=== PATIENT | male | born 1975 | race Caucasian/White ===

== ENCOUNTER → 2023-06-29 13:47 | Outpatient (REF) | payer BC, SELFPAY | LOC: PAVMRI 13:47 | PROVIDERS: ATTENDING PHYSICIAN Psychiatry & Neurology Neurology; FAMILY PHYSICIAN Internal Medicine | DX: R41.3 Other amnesia (principal) | CPT/HCPCS: 70551 ==

== ENCOUNTER → 2023-07-21 11:14 | Outpatient (REF) | payer BC, SELFPAY ==
--- NOTE | 2023-07-26 14:56 | EEG.RPT ---
Electroencephalogram Report
Recording
Date of EE07/21/23
Length of EEG recordin minutes
Patient Status: Outpatient
Recording Conditions: Awake and Drowsy
Hyperventilation Performed: Yes
Photic Stimulation Performed: Yes
Hand Dominance: Unknown
Report
GREATER THAN 1 HOUR EEG INTERPRETATION:
Unremarkable EEG for age
CLINICAL CORRELATION:
A normal EEG does not rule out a diagnosis of epilepsy.� If clinical suspicion for seizure persists, a prolonged recording may be warranted.
Clinical correlation is advised.
METHODS:
A 21 channel digitized electroencephalogram (EEG) was performed using the 10/20 international system of electrode placement and one-lead of ECG recorded. Study lasted 51 minutes.
ELECTROENCEPHALOGRAPHER IMPRESSION(S):
Quality of study
Good
Background
Mixed medium amplitude alpha and theta frequency background
Normal posterior dominant rhythm of 10 Hz seen
With eye opening the background activity changed to a low voltage mixture of frequencies.
There were no significant asymmetries of background activity noted.
Sleep
Drowsiness present
Stage 1 present
Photic Stimulation
No activation
Hyperventilation
No activation
ECG
Normal sinus rhythm
== END ==
LOC: CARD 11:14
PROVIDERS: ATTENDING PHYSICIAN Psychiatry & Neurology Neurology; FAMILY PHYSICIAN Internal Medicine
DX: R41.3 Other amnesia (principal)
CPT/HCPCS: 95812

== ENCOUNTER 2023-08-30 08:02 | Outpatient (RCR) | payer BC, SELFPAY | END 2023-08-30 23:59 | disposition home or self-care (01) | LOC: RST 08:02 | PROVIDERS: ATTENDING PHYSICIAN Psychiatry & Neurology Neurology; FAMILY PHYSICIAN Internal Medicine | DX: R41.3 Other amnesia (principal); R47.02 Dysphasia | CPT/HCPCS: 92507; 92523 ==

== ENCOUNTER 2023-09-29 15:50 | Outpatient (RCR) | payer BC, SELFPAY | END 2023-09-29 23:59 | disposition home or self-care (01) | LOC: RST 15:50 | PROVIDERS: Psychiatry & Neurology Neurology; ATTENDING PHYSICIAN Surgery Surgical Critical Care; FAMILY PHYSICIAN Internal Medicine | DX: R41.3 Other amnesia (principal); R47.02 Dysphasia | CPT/HCPCS: 92507 ==